=== PATIENT | male | born 1960 | race Caucasian/White ===

== ENCOUNTER → 2020-07-04 | Outpatient (CLI) | payer OTHER ==
[2020-07-04 14:06] LABS: HCT 43.1 % (39.0-53.0); HGB 15.3 gm/dL (13.0-17.5); MCHC 35.5 g/dL (31.0-37.0); MCV 87.3 fL (80.0-100.0); Mean Platelet Volume 6.1; Platelet Count 237 k/uL (150-450); RBC 4.94 m/uL (4.30-5.90); RDW 12.8 % (11.5-15.5); WBC 6.9 k/uL (3.8-10.6)
[2020-07-04 14:19] LABS: ALT 23 U/L (4-49); AST 29 U/L (17-59); African American GFR (CKD) >90 (>60 ml/min/1.73 sqM); Albumin 4.3 g/dL (3.5-5.0); Alkaline Phosphatase 51 U/L (38-126); Anion Gap 6 mmol/L; Blood Urea Nitrogen 15 mg/dL (9-20); Calcium 9.6 mg/dL (8.4-10.2); Carbon Dioxide 30 mmol/L (22-30); Chloride 104 mmol/L (98-107); Cholesterol 176 mg/dL (<200); Glucose 101 mg/dL (74-99); HDL Cholesterol 74 mg/dL (40-60); LDL Cholesterol,Calculated 84 mg/dL (0-99); Non-African American GFR(CKD) 86 (>60 ml/min/1.73 sqM); Potassium 4.7 mmol/L (3.5-5.1); Sodium 140 mmol/L (137-145); Total Bilirubin 0.9 mg/dL (0.2-1.3); Triglycerides 90 mg/dL (<150)
--- NOTE | 2020-07-04 15:21 | XR ---
EXAMINATION TYPE: XR chest 2V DATE OF EXAM: 07/04/2020 COMPARISON: NONE HISTORY: Shortness of breath and pain TECHNIQUE: Frontal and lateral views of the chest are obtained. FINDINGS: There is no focal air space opacity, pleural effusion, or pneumothorax seen. The cardiac silhouette size is within normal limits. The osseous structures are intact. There is a lap band in place. IMPRESSION: No acute cardiopulmonary process.
[2020-07-05 00:35] LABS: Hemoglobin A1C 6.3 % (4.0-6.0)
[2020-07-05 02:27] LABS: Prostate Specific Antigen 3.7 ng/mL (0.0-4.5)
== END | disposition home or self-care (01) ==
LOC: RADXRMAIN 13:01
PROVIDERS: ATTEND Physician Assistant Medical
DX: R06.02 Shortness of breath (principal); R07.9 Chest pain, unspecified; R73.01 Impaired fasting glucose; I10 Essential (primary) hypertension; E78.5 Hyperlipidemia, unspecified
CPT/HCPCS: 36415; 71046; 80053; 80061; 83036; 84153; 84443; 85027

== ENCOUNTER → 2020-07-12 | Outpatient (CLI) | payer OTHER ==
--- NOTE | 2020-07-13 05:28 | MR ---
EXAMINATION TYPE: MR lumbar spine wo con DATE OF EXAM: 07/12/2020 COMPARISON: 12/22/2015 HISTORY: Back pain into rt side Multiplanar multiecho imaging of the lumbar spine was performed without contrast. FINDINGS: Lumbar vertebra have normal alignment. There is mild narrowing of the disc spaces from L3 to S1. Ther e is no compression fracture. There is a small posterior disc bulge at L4-5 without impingement on th e spinal canal. The neural foramina are fairly well-maintained. There is no lumbar paraspinal mass. S acroiliac joints are intact. Posterior elements are intact. I see no bony destructive process. IMPRESSION: Mild spondylotic changes in the lower lumbar spine. Small posterior L4-5 lumbar disc bulging is sligh tly increased compared to old exam.
== END | disposition home or self-care (01) ==
LOC: RADMRIMAIN 06:53
PROVIDERS: ATTEND Physician Assistant Medical
DX: M51.26 Other intervertebral disc displacement, lumbar region (principal); M47.816 Spondylosis without myelopathy or radiculopathy, lumbar region
CPT/HCPCS: 72148

== ENCOUNTER → 2020-12-05 | Outpatient (CLI) | payer OTHER ==
--- NOTE | 2020-12-05 10:51 | CT ---
EXAMINATION TYPE: CT chest wo con DATE OF EXAM: 12/05/2020 COMPARISON: None HISTORY: Pulmonary fibrosis CT DLP: 1005 mGycm High-resolution noncontrast CT of the chest was performed with the patient in the prone and supine po sitions. Lung and mediastinal window settings are submitted. The lungs appear to be well-aerated. I do not see evidence for fibrotic change. There is no eviden ce for bronchiectasis, groundglass infiltrate, nodule or mass. No pleural effusion is identified. I do not see evidence for hilar or mediastinal mass or adenopathy. IMPRESSION: No significant abnormality is seen. Correlate clinically.
== END | disposition home or self-care (01) ==
LOC: RADCTMAIN 10:05
PROVIDERS: ATTEND Family Medicine
DX: J84.10 Pulmonary fibrosis, unspecified (principal)
CPT/HCPCS: 71250

== ENCOUNTER → 2021-01-03 | Outpatient (CLI) | payer OTHER ==
[2021-01-03 09:12] VITALS: BP 135/70; TEMP 97.4
--- NOTE | 2021-01-03 16:04 | P.PAINCN ---
History of Present Illness - Reason for Consult Consult date: 01/03/21 - Chief Complaint lumbar back pain - History of Present Illness Mr. Casper is [id number] pleasant male came to the [facility] pain clinic for initial evaluation . patient has ongoing pain in his lumbar area sometimes radiating to his gluteal area. Patient has ongoing pain for many years, but lately his pain is getting worse. Patient describes pain is aching, throbbing, constant type of pain. Pain is radiating to gluteal area. Patient rated pain levels are 7 -8 out of 10 in severity. Activities making pain worse. Medications, resting helping in relieving patient's pain. Patient pain some days better than others. Overall activities decreased secondary to pain. Because of the pain sometimes patient is feeling lack of sleep, interest, and energy. Denied any bowel or bladder problems at this time. patient is not using any walking aids. Patient denied any suicidal ideas/homicidal ideas at this time. Patient denied any red flag symptoms related to pain.MRI of the lumbar spine showed a posterior L4-L5 disc bulging. Review of Systems 1- Constitutional : Patient denies anorexia, no chills , no fever , no night sweats , no change of appetite, no lethargy 2- Ears : No ear ache , no tinnitus , no ear discharge , no change in hearing 3-Nose, Mouth ,Throat ; no bleeding gums, no sore throat , no epistaxis , no hoarseness , no nose pain , no voice change 4-Cardiovascular : Denies chest pain, denies lightheadedness , no orthopnea , no palpitation , no paroxysmal nocturnal dyspnea no syncope , no leg edema , no irregular heartbeat 5-Respiratory : Denies cough , no dyspnea , no hemoptysis , no sleep apnea, no wheezing , no excessive sputum 6-Gastrointestinal : No jaundice , no nausea , no vomiting ,No abdominal pain , no bloating , no coffee-ground emesis , no hematochezia , No melena , 7-Genitourinary : No hematuria , no discharge , no urinary frequency , no urinary hesitancy , no incontinence, No dysuria 8-Musculoskeletal : No gait dysfunction , report low back pain , 9- Neurological : no ataxia , no aphasia ,no balance difficulties , no change in visions , no change in speech , no tremor , no vertigo , no sezure , no memory loss 10-Psychatric : no anexity ,no depression , no suicidal ideation , no change in appetite , no memory loss , no hallucination 11- Endocrine : no cold intolerence , no nocturia , no polyuria , no polydypsia , no heat intolerance 12-Hematologic : no easy bleeding , no easy brusing , 13-Allergic / immunology : no angioedema , no wheezing ,no allergic rhinitis no glutean intolerence 14-Integumentary : no brttle nails , no change hair / nails , no hirsutism no depigmentation , no foot/leg ulcers Past Medical History Past Medical History: Asthma, COPD, Hyperlipidemia, Hypertension Additional Past Medical History / Comment(s): back pain,borderline diabetes History of Any Multi-Drug Resistant Organisms: None Reported Past Surgical History: Bariatric Surgery, Orthopedic Surgery Additional Past Surgical History / Comment(s): lt leg,lap band-fluid present,lt ankle-no hardware Past Anesthesia/Blood Transfusion Reactions: No Reported Reaction Smoking Status: Never smoker - Past Family History Mother Family Medical History: Cancer Additional Family Medical History / Comment(s): stomach CA Medications and Allergies Home Medications Medication Instructions Recorded Confirmed Type Naproxen 500 mg PO DAILY 01/01/21 01/01/21 History Sertraline [Zoloft] 100 mg PO DAILY 01/01/21 01/01/21 History lisinopriL [Prinivil] 20 mg PO DAILY 01/01/21 01/01/21 History Allergies Allergy/AdvReac Type Severity Reaction Status Date / Time No Known Allergies Allergy Verified 01/01/21 14:48 Physical Exam Vitals: Vital Signs Temp BP 01/03/21 09:09 97.4 F L 135/70 General: Well-developed, well-nourished, no acute distress HEENT: Normocephalic, and atraumatic Neck: Supple, no neck swelling Psychiatric: Appropriate mood, and affect [employer]: No focal neurological deficits Musculoskeletal: Upper extremity: Normal strength, and range of motion. Sensation grossly intact Lower extremity: Normal strength, and decreased range of motion secondary to pain at hip area Lumbar spine: Paravertebral tenderness: positive Lumbar facet load test : positive Sacroiliac joint tenderness: Positive Thigh thrust test: negative SI joint compression test: negative Results Results: MRI of the lumbar spine done on 07/12/2020 showed Mild spondylolytic changes in the lower lumbar spine. Small posterior L4-L5 lumbar disc bulging is slightly increased compared to the old exam done on 12/22/2015 Assessment and Plan Assessment: lumbar spondylosis without myelopathy Lumbar disc bulging at L4-L5 level Myofascial pain syndrome Plan: #1 Opioid, and psychological risk tools, and scores were reviewed. Diagnoses, prognosis, and multiple treatment options including but not limited to physical therapy, interventional therapy, adjunct medication therapy, narcotic medication, and surgical options were discussed with the patient. And all questions were answered to the patient's satisfaction. #2 treatment plan agreement : Patient was thoroughly discussed regarding the treatment options, alternatives, and importance of exercises as tolerated. Patient clearly understood. #3 Patient was counseled on importance of regular exercise. Including brandon chi, aerobic exercises as tolerated. Which helps for chronic pain, and overall well- being. Patient also counseled regarding importance of weight control rolling chronic pain, and overall other health issues. By altering diet habits, minimizing sugar intake, and processed foods helps in minimizing Inflammation. Also discussed with the patient regarding intermittent fasting. Patient counseled regarding smoking associated with chronic pain, worsening inflammation, and smoking effects on liver, and medication metabolism. And encouraged to stop smoking. #4 investigations: MAPS- reviewed , urine drug test- none #5 diagnostic tests: none #6 consultation : physical therapy # 7 interventional procedures: lumbar L4-L5 epidural steroid injection. Procedure, complications, alternatives discussed with the patient. #8 medications magnesium oxide 400 mg by mouth daily Medication side effects, complications, long-term consequences discussed with the patient. Patient recommended to contact the pain clinic if noticed any issues with given medications. #9 morphine milligrams equivalents dose ( MME) per day: 0 # 10 TENS unit's, and percussion massage device #11 disposition: scheduled to follow up with pain clinic in 4 weeks duration. Time with Patient: Greater than 30 PQRS Measure Charge Sheet Measure #130: Documentation of Current Meds in Medical Chart: Patient's medications documented in chart Measure #226: Tobacco Use: Screen & Cessation Intervention: Pt not a tobacco user Measure #111: Pneumonia Vaccination: Pneumococcal vaccine NOT administered or previously given Measure #47: Advance Care Plan: Advance care planning discussed & documented, pt chose/unable to give Measure #412: Opioid Treatment Agreement: No documentation of signed opioid treatment agreement Measure #408: Opioid Therapy Follow-up Evaluation: Patient had NO f/u eval minimum every 3 months during opioid therapy Measure #317: Preventitive Care & Scrn High Bld Press & F/U: Pre-hypertensive or hypertensive BP documented, pt will f/u with PCP Measure #128: Body Mass Index (BMI) Screening & Follow-up: BMI documented ABOVE normal parameters - f/u documented Measure #131: Pain Assessment & Follow-up: Pain positive & plan documented Measure #431: Unhealthy Alcohol Use Preventative Care & Scrn: Patient not ident ified as an unhealthy alcohol user Mode of Arrival: Ambulatory - Pain Location Back Non-Pharmacological Interventions: Chiropractic Treatment, Heat, Inactivity, Sitting Pharmacological Interventions: Medication PQRS Narrative: Blood Pressure 135/70 Pain Intensity [Back] 7 Scale Used Numeric (1 - 10) Hx Alcohol Use (MH) No Home Medications: Ambulatory Orders Naproxen 500 mg PO DAILY 01/01/21 Sertraline [Zoloft] 100 mg PO DAILY 01/01/21 lisinopriL [Prinivil] 20 mg PO DAILY 01/01/21
== END ==
LOC: PNWHC3 08:25
DX: M47.816 Spondylosis without myelopathy or radiculopathy, lumbar region (principal); M79.18 Myalgia, other site; M51.26 Other intervertebral disc displacement, lumbar region; J44.9 Chronic obstructive pulmonary disease, unspecified; E78.5 Hyperlipidemia, unspecified; I10 Essential (primary) hypertension; Z79.899 Other long term (current) drug therapy

== ENCOUNTER 2021-01-28 12:33 | Emergency (ER) | payer OTHER ==
[2021-01-28 12:52] VITALS: RESP 18; TEMP 97
[2021-01-28] MEDS ORDERED: DIPH,PERTUS(ACELL)TETVAC-LF 0.5 ML VIAL IM ONE (13:01)
[2021-01-28] MEDS ORDERED: LIDOCAINE 1% INJ 10MG/ML (20 ML MDV) SQ ONE (13:02)
--- NOTE | 2021-01-28 13:08 | ED ---
Upper Extremity HPI - General Chief Complaint: Extremity Injury, Upper Stated Complaint: finger injury Time Seen by Provider: 01/28/21 12:56 Source: patient, RN notes reviewed Mode of arrival: ambulatory Limitations: no limitations - History of Present Illness Initial Comments: Patient is 60-year-old male presenting to ED for left second digit laceration. Patient states that today caught finger between post and post hole driving device. Patient describes constant pain with event and applied direct pressure helping stop bleeding. Patient states pain is 5 out of 10 now. Patient denies any injury to any other site. patient denies numbness or tingling in finger, "all that i can feel right now is pain". patient is unaware of tetenus status at this time. Patient denies being on any blood thinners at this time. - Related Data Home Medications Medication Instructions Recorded Confirmed Naproxen 500 mg PO DAILY 01/01/21 01/01/21 Sertraline [Zoloft] 100 mg PO DAILY 01/01/21 01/01/21 lisinopriL [Prinivil] 20 mg PO DAILY 01/01/21 01/01/21 Previous Rx's Medication Instructions Recorded Cephalexin [Keflex] 500 mg PO Q6HR #40 cap 01/28/21 Allergies Allergy/AdvReac Type Severity Reaction Status Date / Time No Known Allergies Allergy Verified 01/28/21 12:52 Review of Systems ROS Statement: Those systems with pertinent positive or pertinent negative responses have been documented in the HPI. ROS Other: All systems not noted in ROS Statement are negative. Past Medical History Past Medical History: Asthma, Hyperlipidemia, Hypertension History of Any Multi-Drug Resistant Organisms: None Reported Past Surgical History: Bariatric Surgery, Orthopedic Surgery Additional Past Surgical History / Comment(s): lt leg,lap band Past Psychological History: Depression Smoking Status: Never smoker Past Alcohol Use History: None Reported Past Drug Use History: None Reported General Exam Limitations: no limitations General appearance: alert, anxious, in distress Respiratory exam: Present: normal lung sounds bilaterally. Absent: respiratory distress, wheezes, rales, rhonchi, stridor Cardiovascular Exam: Present: regular rate, normal rhythm, normal heart sounds. Absent: systolic murmur, diastolic murmur, rubs, gallop, clicks Left Forearm Wrist exam: Present: normal inspection Hand Wrist exam: Present: tenderness, laceration, deformity, other (Crush injury to left second digit DTP) Hand L/R Back: 1 - laceration, possible fx Neurological exam: Present: alert, oriented X3 Skin exam: Present: warm, dry, intact, normal color. Absent: rash Course Vital Signs 01/28/21 12:50 Temperature 97.0 F L Pulse Rate 62 Respiratory 18 Rate Blood Pressure 129/87 O2 Sat by Pulse 97 Oximetry Procedures - Laceration Laceration #1 Consent Obtained: verbal consent Indication: laceration Site: hand Size (cm): 3 Description: flap, irregular Depth: simple, single layer Anesthetic Used: lidocaine 1% Anesthesia Technique: nerve block Amount (mls): 10 Type of Sutures: nylon Size of Sutures: 4-0 Number of Sutures: 5 Technique: simple, interrupted Patient Tolerated Procedure: well, no complications Additional Comments: finger splint was applied Medical Decision Making - Medical Decision Making Patient presented with left hand second digit laceration from crushing injury. X-ray was obtained showing open fracture, left second digit distal phalanx. Patient wound was cleaned, digital block was performed with lidocaine SQ. 5 sutures were placed to close laceration. Site was covered in antibiotic ointment placed in splint to limit motion of fracture. Patient was given Kefzol shot for open fracture coverage, so booster was given. Patient was sent home on Keflex oral antibiotic with Tylenol starter pack for pain management. Patient given Ortho referral. Return parameters were discussed. Disposition Clinical Impression: Open fracture of finger, distal phalanx Disposition: HOME SELF-CARE Condition: Stable Instructions (If sedation given, give patient instructions): Care For Your Stitches (ED), Laceration (ED), Finger Fracture (ED) Additional Instructions: Please return to the Emergency Department if symptoms worsen or any other concerns. Prescriptions: Cephalexin [Keflex] 500 mg PO Q6HR #40 cap Is patient prescribed a controlled substance at d/c from ED?: No Referrals: Natalie Botello DO [Primary Care Provider] - 1-2 days Renate Horner DO [Doctor of Osteopathic Medicine] - 1-2 days Time of Disposition: 14:09
[2021-01-28] MEDS ORDERED: ceFAZolin 1,000 MG VIAL (IM USE) IM STA (13:16)
--- NOTE | 2021-01-28 13:51 | XR ---
EXAMINATION TYPE: XR finger LT DATE OF EXAM: 01/28/2021 CLINICAL HISTORY: pain TECHNIQUE: 3 views of the left second digit are submitted. COMPARISON: None FINDINGS: Markedly comminuted subungual tuft and shaft fracture distal phalanx left second digit. Ass ociated soft tissue injury noted. IMPRESSION: As above
[2021-01-28] MEDS ORDERED: BACITRACIN OINT 1 EACH PACKET TOPICAL ONE (13:55)
[2021-01-28] MEDS ORDERED: ACET/COD 300 MG/30 MG STARTER PACK 6 TAB BTL PO STA (13:55)
[2021-01-28 14:21] VITALS: BP 131/87; PULSE 88
== END 2021-01-28 14:21 | disposition home or self-care (01) ==
LOC: EC 12:33
DX: S62.631B Displaced fracture of distal phalanx of left index finger, initial encounter for open fracture (principal); I10 Essential (primary) hypertension; E78.5 Hyperlipidemia, unspecified; J45.909 Unspecified asthma, uncomplicated; F32.9 Major depressive disorder, single episode, unspecified; Z79.1 Long term (current) use of non-steroidal anti-inflammatories (NSAID); Z79.899 Other long term (current) drug therapy; Z23 Encounter for immunization; W23.0XXA Caught, crushed, jammed, or pinched between moving objects, initial encounter
CPT/HCPCS: 73140; 90715; 12002; 90471; 99283; 96372; J0690; J2001

== ENCOUNTER 2021-02-22 11:23 | Day surgery (SDC) | payer OTHER ==
[2021-02-20 15:29] VITALS: BMI 33.0
[2021-02-22] MEDS ORDERED: LACTATED RINGERS 1,000 ML IV SCH (11:49)
[2021-02-22 12:02] VITALS: TEMP 97.5
[2021-02-22] MEDS ORDERED: LIDOCAINE 1% (10MG/ML) FOR IV START INTRADERMA ONE (12:02)
[2021-02-22] MEDS ORDERED: IOPAMIDOL M200 10 ML VIAL ONE (12:31)
[2021-02-22] MEDS ORDERED: fentaNYL (PF) 50 MCG/ML 2 ML AMP ONE (12:31)
[2021-02-22] MEDS ORDERED: MIDAZOLAM 2 MG/2 ML VIAL ONE (12:31)
[2021-02-22] MEDS ORDERED: methylPREDNISolone ACETATE 40 MG/ML 1 ML VIAL ONE (12:31)
--- NOTE | 2021-02-22 12:41 | P.PCN ---
Date of Procedure: 02/22/21 Procedure(s) Performed: PREOPERATIVE DIAGNOSIS: 1- Lumbar Degenerative Disc Diseases 2-Lumbar spondylosis with Facet arthropathy without myelopathy POSTOPERATIVE DIAGNOSIS: Same as preop diagnosis. PROCEDURE 1. Lumbar epidural steroid injection under fluoroscopic guidance at the L4-5 level. (Fluoroscopy imaging was available in radiology department) 2. Lumbar epidurogram. ANESTHESIA: Local with 1% lidocaine 3 ml and , moderate sedation with intravenous Versed 2 mg ,and fentanyle 50 Mcg EBL: Minimal PROCEDURE INDICATION: The patient with low back pain and radiculitis symptoms unresponsive to conservative treatment. Fluoroscopy was used to optimize visualization of the needle placement and to maximize safety. PROCEDURE DESCRIPTION / TECHNIQUE: The patient was seen and identified in the preoperative area. Risks, benefits, complications including but not limited to infections ,bleeding ,allergic reaction to the medications ,nerve damage and not complete pain releife , and alternatives were discussed with the patient. The patient agreed to proceed with the procedure and signed the consent. IV was started, and vital signs were stable. Patient was taken to the OR and time out was completed. The patient was placed in the prone position on procedure table and a pillow was placed under the abdomen to reduce lumbar lordosis. The lumbosacral area was prepped and draped in the usual sterile fashion.ere closely monitored during the procedure. Co nscious sedation was used during the procedure to decrease patients anxiety. Vital signs was monitered during the entire procedure. Using anterior-posterior fluoroscopy, the L4-5 interlaminar space was identified and the skin over this site was marked and then infiltrated with 1% lidocaine subcutaneously. Subsequently, a 20-gauge Tuohy epidural needle was inserted and advanced toward the epidural space using the ``Loss of resistance technique and guided by AP and lateral fluoroscopy. The correct needle position in the epidural space was verified with the injection of 2 mL of the water soluble contrast dye Isovue 200 contrast and observing an excellent epidurogram with the epidural spread of the dye, after negative aspiration for blood and CSF and in the absence of paresthesias. Again after negative aspiration, a 6 ml mixture containing 80 mg of Depo-medrol , and 2 ml of preservative free Normal Saline, and 2 ml of preservative free lidocaine 1% solution was injected and a washout of epidurogram was seen. Needle was withdrawn intact, skin was cleansed, and bandages were applied. COMPLICATIONS: None DISPOSITION / PLANS: The patient was placed in a supine position and transferred to the recovery area in a stable condition for observation. There was no evidence of lower extremity motor or sensory deficit after the procedure. Patient was discharged from the recovery room after meeting discharge criteria. Home discharge instructions were given to the patient by the staff. The patient was reexamined prior to discharge. The patient will schedule a follow up in the clinic in 2-4 weeks.
[2021-02-22] MEDS ORDERED: IV FLUID CONTINUATION 1,000 ML IV ONE (12:48)
[2021-02-22 12:54] VITALS: RESP 20
--- NOTE | 2021-02-22 13:03 | FL ---
EXAMINATION TYPE: FL guided pain mgmt statistic DATE OF EXAM: 02/22/2021 HISTORY: Fluoroscopy time 2 seconds of fluoroscopy provided. IMPRESSION: 1. Fluoroscopy time.
[2021-02-22 13:10] VITALS: BP 133/93; PULSE 66
== END 2021-02-22 13:20 | disposition home or self-care (01) ==
LOC: ORPAIN 11:23
PROVIDERS: ATTEND Specialist
DX: M51.16 Intervertebral disc disorders with radiculopathy, lumbar region (principal); M47.26 Other spondylosis with radiculopathy, lumbar region
CPT/HCPCS: 62323; J2250; J1030; J3010; Q9966

== ENCOUNTER → 2021-09-24 | Outpatient (CLI) | payer OTHER ==
[2021-09-24 08:52] VITALS: BP 126/88; PULSE 68; RESP 18; TEMP 98
--- NOTE | 2021-09-24 09:05 | P.PAINPG ---
Objective - Vital Signs Vital signs: Vital Signs Temp 98 F 09/24/21 08:47 Pulse 68 09/24/21 08:47 Resp 18 09/24/21 08:47 BP 126/88 09/24/21 08:47 Pulse Ox 97 09/24/21 08:47 FiO2 Intake & Output 09/23/21 09/24/21 09/24/21 18:59 06:59 18:59 Weight 104.326 kg PQRS Measure Charge Sheet Mode of Arrival: Ambulatory Comment: A 61 yr old male with a history of severe and chronic low back pain secondary to lumbar degenerative disc diseases and lumbar spondylosis with facet arthropathy presents today for reevaluation of LESI L4-L5 approximately 5 months ago. He states he expressed 80% pain relief for 5 months status post procedure but pain has escalated over the last 2 months. Pain level is currently at 7 out of 10 intensity, dull, achy in the lower aspect of the lumbar spine with radiation of sharp pain down the right lower extremity towards the back of his calf. Pain is provoked with lifting. Pain is alleviated with medications (naproxen from Dr. Botello), injections, physical therapy in 2020 which provided no relief, chiropractic treatments in February 2021 which provided temporary relief, daily home exercise regimen, repositioning and rest. Interventional pain procedures completed include LESI L4-L5 x 1 Patient is currently on Naproxen BID by Dr Botello Patient denies any side effects of the medication(s), denies excessive drowsiness or sleepiness, denies suicidal ideation and reports that the current pain medication is helping to control the pain and improve activities of daily living. Patient denies any motor or sensory deficits. Patient denies any fever or night sweats, denies any change in the bowel movements or urination. Physical Examination: -Constitutional: Cooperative. Not in acute distress . -HEENT: Neck is supple. No lymphadenopathy. No thyromegaly. Normal thyroid size. Eyes: No ptosis , no icterus, no photophobia. ENT: No auditory deficits. Normal oropharynx. No Thrush. - Respiratory: Chest clear to auscultations bilaterally. No wheezing. No rhonchi. - Cardiovascular: Regular rate and rhythm. S1 / S2 , no S3 , no S4. - Gastrointestinal: Abdomen soft no tenderness. Bowel sounds positive in all four quadrants. No organomegaly. - Genitourinary: Deferred. - Neurologic: Cranial nerve II to XII intact. No focal neurological deficits. - Psychatric: Alert & oriented x 3. Matching mood & appropriate affect. Judgment and insight intact. - Lymphatic: No Lymphadenopathy. - Musculoskeletal: Cervical spine: Muscle bulk/ tone/ strength in the bilateral upper extremities normal Vertebral body tenderness to palpation over Facet loading test positive Thoracic spine Muscle bulk / tone/ strength in the bilateral paraspinal muscles normal Vertebral body tender to palpation over Facet loading test positive Lumbar spine: Motor bulk/ tone/ strength lower extremities , thigh and legs : 5/5 Deep tendon reflexes : Normal Knee Jerk. Normal Ankle Jerk . Vertebral body tenderness to palpation over L4 Lumbar Facet Loading Test positive Straight Leg Raise: positive at 30 degrees right side/ left side Gaenslen's Test positive Sacral spine : Severe tenderness over the Sacroiliac joint: right side / left side Range of motion: Flexion of the lumbar spine <60 degrees Range of motion: Extension of the lumbar spine <20 degrees Gaenslen's Test positive Armen's Test positive Harish test: positive right side / left side Thigh Thrust Test Sacral Thrust Test Assessment and plan: Chronic low back pain secondary to lumbar degenerative disc disease , lumbar spondylosis with facet arthropathy without myelopathy Recommendation of LESI L4-L5. May need a series of injections, up to 3 within a 6 mo period, for optimal pain relief. Risks, benefits of procedure discussed and pt verbalized understanding. Denies anticoagulant use. Protocol for discontinuation/continuation of medications yury procedure discussed. Admits to a medical history of diabetes. All patient questions answered MAPS reviewed and it was appropriate. I have spent 31 minutes on patient care today. Dr Rodriguez was available by phone for the evaluation of this patient. The time was used to review the medical records including relevant urine studies and Prescription history (MAPs), review of the available imaging, evaluation and examination of the patient, coordination of care with the medical staff and if applicable referring physicians, as well as creation of the medical record - Pain Location Lower Back Non-Pharmacological Interventions: Chiropractic Treatment, Home Exercise, Inactivity, Physical Therapy, Position/Reposition, Sitting Pharmacological Interventions: Epidural, PRN Medication PQRS Narrative: Blood Pressure 126/88 Pain Intensity [Lower Back] 7 Scale Used Numeric (1 - 10) Hx Alcohol Use (MH) No Home Medications: Ambulatory Orders Naproxen 500 mg PO DAILY 01/01/21 Sertraline [Zoloft] 100 mg PO DAILY 01/01/21 lisinopriL [Prinivil] 20 mg PO DAILY 01/01/21 Atorvastatin [Lipitor] 20 mg PO DAILY 02/20/21 metFORMIN HCL [Glucophage] 500 mg PO BID 09/24/21 Controlled Substance Measures - Controlled Substance Measures Is patient prescribed a controlled substance at discharge?: No
== END ==
LOC: PNWHC3 08:24
PROVIDERS: ATTEND Specialist
DX: M51.16 Intervertebral disc disorders with radiculopathy, lumbar region (principal); M47.26 Other spondylosis with radiculopathy, lumbar region; G89.29 Other chronic pain
CPT/HCPCS: 99211

== ENCOUNTER 2021-10-04 07:02 | Day surgery (SDC) | payer OTHER ==
[2021-10-02 15:31] VITALS: BMI 32.3
[~2021-10-04 07:02] MED LIST: LACTATED RINGERS 1,000 ML IV SCH; LIDOCAINE 1% (10MG/ML) FOR IV START INTRADERMA PRN
[2021-10-04 07:59] VITALS: TEMP 97.5
[2021-10-04 08:03] LABS: Glucose,Whole Blood 124 mg/dL (70-110)
--- NOTE | 2021-10-04 08:18 | P.GSHP ---
History of Present Illness H&P Date: 10/04/21 Chief Complaint: GERD, screening colonoscopy Is a 61-year-old male presents today for EGD and screening colonoscopy. He is issues with GERD. Past Medical History Past Medical History: Asthma, COPD, Diabetes Mellitus, Hyperlipidemia, H ypertension History of Any Multi-Drug Resistant Organisms: None Reported Past Surgical History: Bariatric Surgery, Orthopedic Surgery Additional Past Surgical History / Comment(s): lab band surgery, reconstructive surgery left ankle Past Anesthesia/Blood Transfusion Reactions: No Reported Reaction Smoking Status: Never smoker - Past Family History Mother Family Medical History: Cancer Additional Family Medical History / Comment(s): stomach cancer Medications and Allergies Home Medications Medication Instructions Recorded Confirmed Type Naproxen 500 mg PO DAILY 01/01/21 10/02/21 History Sertraline [Zoloft] 100 mg PO HS 01/01/21 10/02/21 History lisinopriL [Prinivil] 20 mg PO HS 01/01/21 10/02/21 History Atorvastatin [Lipitor] 20 mg PO HS 02/20/21 10/02/21 History metFORMIN HCL [Glucophage] 500 mg PO BID 09/24/21 10/04/21 History Montelukast Sodium [Singulair] 10 mg PO HS 10/02/21 10/02/21 History Allergies Allergy/AdvReac Type Severity Reaction Status Date / Time No Known Allergies Allergy Verified 10/02/21 15:17 Surgical - Exam Vital Signs Temp Pulse Resp BP Pulse Ox 97.5 F L 57 L 16 127/86 98 10/04/21 07:50 10/04/21 07:50 10/04/21 07:50 10/04/21 07:50 10/04/21 07:50 - General well developed, well nourished, no distress - Eyes PERRL - ENT normal pinna - Neck no masses - Respiratory normal expansion - Cardiovascular Rhythm: regular - Abdomen Abdomen: soft, non tender Results - Labs Abnormal Lab Results - Last 24 Hours (Table) 10/04/21 Range/Units 07:56 POC Glucose (mg/dL) 124 H (70-110) mg/dL Assessment and Plan Assessment: GERD. We'll perform EGD. We'll perform screening colonoscopy
[2021-10-04] MEDS ORDERED: LIDOCAINE 2% INJ 20 MG/ML (2 ML VIAL) ONE (08:19)
[2021-10-04] MEDS ORDERED: PROPOFOL 10 MG/ML 20 ML VIAL IV ONE (08:19)
--- NOTE | 2021-10-04 08:42 | P.OP ---
Date of Procedure: 10/04/21 Preoperative Diagnosis: GERD Screening colonoscopy Postoperative Diagnosis: Antral gastritis Diverticulosis Procedure(s) Performed: EGD Colonoscopy Anesthesia: MAC Surgeon: Clive Arzate Pathology: other (Antrum) Condition: stable Disposition: PACU Description of Procedure: The patient's placed on the endoscopy table in the lateral position. He received IV sedation. Digital rectal exam was performed. This revealed a few external hemorrhoids. The flexible colonoscope was then placed patient anus and passed throughout the entire colon. The ileocecal valve was visualized. The cecum, ascending and transverse colon appeared normal. In the descending and sigmoid colon there was moderate diverticular changes. The scope was then brought back the rectum and this appeared normal. Scope withdrawn for patient. Next the gastro-/oropharynx passed in the esophagus into the stomach. Scope was then placed through the pylorus. The first and second portion of the duodenum appeared normal. Scope was then brought back the antrum this was minimal inflamed. A biopsies performed. Scope was unretroflexed and remainder the stomach appeared normal. The patient a previous placed LAP-BAND device. This without evidence of inflammation or erosion. The distal esophagus appeared normal. The proximal esophagus. Normal. Scope was then withdrawn for patient.
[2021-10-04 08:47] VITALS: RESP 18
[2021-10-04 09:02] VITALS: BP 108/64; PULSE 58
== END 2021-10-04 09:58 | disposition home or self-care (01) ==
LOC: ORWHC2ENDO 07:02
PROVIDERS: ATTEND Surgery
DX: Z12.11 Encounter for screening for malignant neoplasm of colon (principal); K29.50 Unspecified chronic gastritis without bleeding; K57.30 Diverticulosis of large intestine without perforation or abscess without bleeding; K64.4 Residual hemorrhoidal skin tags; K21.9 Gastro-esophageal reflux disease without esophagitis; J44.9 Chronic obstructive pulmonary disease, unspecified; E11.69 Type 2 diabetes mellitus with other specified complication; E78.5 Hyperlipidemia, unspecified; I10 Essential (primary) hypertension; Z98.84 Bariatric surgery status; Z80.0 Family history of malignant neoplasm of digestive organs; Z79.1 Long term (current) use of non-steroidal anti-inflammatories (NSAID); Z79.899 Other long term (current) drug therapy; Z79.84 Long term (current) use of oral hypoglycemic drugs
CPT/HCPCS: 88305; 45378; 43239; J2704; J2001

== ENCOUNTER → 2021-10-30 | Day surgery (SDC) | payer OTHER ==
[~2021-10-30] MED LIST changes: +IOPAMIDOL M200 10 ML VIAL ONE; +IV FLUID CONTINUATION 700 ML IV ONE; +LACTATED RINGERS 1,000 ML IV ONE; +MIDAZOLAM 2 MG/2 ML VIAL ONE; +fentaNYL (PF) 50 MCG/ML 2 ML AMP ONE; +methylPREDNISolone ACETATE 80 MG/ML 1 ML VIAL ONE
[2021-10-30 07:05] VITALS: TEMP 97.8
[2021-10-30 07:16] LABS: Glucose,Whole Blood 51 mg/dL (70-110)
[2021-10-30 07:20] LABS: Glucose,Whole Blood 106 mg/dL (70-110)
--- NOTE | 2021-10-30 07:55 | P.PCN ---
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 PROCEDURE 1. Lumbar epidural steroid injection under fluoroscopic guidance at the L4-5 level. (Fluoroscopy imaging was available in radiology department) 2. Lumbar epidurogram. ANESTHESIA: Local with 1% lidocaine 3 ml and , moderate sedation with intravenous Versed 2 mg ,and fentanyle 100 Mcg EBL: Minimal PROCEDURE INDICATION: The patient with low back pain and radiculitis symptoms unresponsive to conservative treatment. Fluoroscopy was used to optimize visualization of the needle placement and to maximize safety. PROCEDURE DESCRIPTION / TECHNIQUE: The patient was seen and identified in the preoperative area. Risks, benefits, complications including but not limited to infections ,bleeding ,allergic reaction to the medications ,nerve damage and not complete pain releife , and alternatives were discussed with the patient. The patient agreed to proceed with the procedure and signed the consent. IV was started, and vital signs were stable. Patient was taken to the OR and time out was completed. The patient was placed in the prone position on procedure table and a pillow was placed under the abdomen to reduce lumbar lordosis. The lumbosacral area was prepped and draped in the usual sterile fashion.ere closely monitored during the procedure. Conscious sedation was used during the procedure to decrease patients anxiety. Vital signs was monitered during the entire procedure. Using anterior-posterior fluoroscopy, the L4-5 interlaminar space was identified and the skin over this site was marked and then infiltrated with 1% lidocaine subcutaneously. Subsequently, a 20-gauge Tuohy epidural needle was inserted and advanced toward the epidural space using the ``Loss of resistance technique and guided by AP and lateral fluoroscopy. The correct needle position in the epidural space was verified with the injection of 2 mL of the water soluble contrast dye Isovue 200 contrast and observing an excellent epidurogram with the epidural spread of the dye, after negative aspiration for blood and CSF and in the absence of paresthesias. Again after negative aspiration, a 6 ml mixture containing 60 mg of Depo-medrol , and 2 ml of preservative free Normal Saline, and 2 ml of preservative free lidocaine 1% solution was injected and a washout of epidurogram was seen. Needle was withdrawn intact, skin was cleansed, and bandages were applied. COMPLICATIONS: None DISPOSITION / PLANS: The patient was placed in a supine position and transferred to the recovery area in a stable condition for observation. There was no evidence of lower extremity motor or sensory deficit after the procedure. Patient was discharged from the recovery room after meeting discharge criteria. Home discharge instructions were given to the patient by the staff. The patient was reexamined prior to discharge. The patient will schedule a follow up in the clinic in 2-4 weeks.
[2021-10-30 08:10] VITALS: RESP 16
--- NOTE | 2021-10-30 08:27 | FL ---
Fluoroscopy HISTORY: Pain 1 seconds fluoroscopy time supplied to the referring clinician. 1 intraoperative C-arm images docume nt the procedure. See dictated report from anesthesia.
[2021-10-30 09:17] VITALS: BP 100/59; PULSE 57
== END ==
LOC: ORPAIN 06:49
PROVIDERS: ATTEND Specialist
DX: M51.16 Intervertebral disc disorders with radiculopathy, lumbar region (principal); M47.26 Other spondylosis with radiculopathy, lumbar region; Z79.899 Other long term (current) drug therapy; Z79.1 Long term (current) use of non-steroidal anti-inflammatories (NSAID); Z79.84 Long term (current) use of oral hypoglycemic drugs; Z80.0 Family history of malignant neoplasm of digestive organs
CPT/HCPCS: 62323; J2250; J1040; J3010; Q9966